=== PATIENT | male | born 1950 | race Caucasian/White ===

== ENCOUNTER → 2021-11-08 | Outpatient (CLI) | payer MEDICARE, BC ==
[~2021-11-08] MED LIST: ALEVE 220MG220 MG PO; AMOXICILLIN 25250 MG PO; ASPIRIN 81M81 MG/TA2 PO; ASPIRIN E.C. 8181 MG PO; CIPRO 500MG TA500 MG; CLARITIN 1010 MG/TAB PO; COZAAR 50MG50 MG/TAB PO; CRESTOR 10MG10 MG PO; EC NAPROSYN500 MG PO; LOTRIMIN1% TP; MULTIPLE VITAMI1 CAP PO; NAPROSYN500 MG PO; NATURAL E400 IU PO; NITROSTAT0.4 MG/TAB SL; PERCOCET 325 MG1 TA2 PO; PRILOSEC 20MG20 MG PO; PROBIOTIC FORMU1 CAP PO; RELAFEN 50500 MG/TAB PO; SENOKOT S 50 MG1 TAB PO; VIAGRA100 MG PO; ZANTAC 150MG T150 MG PO; ZOCOR 20MG20 MG PO; ZYRTEC 10MG10 MG PO; [UNRECOGNIZED DRUG - OTHER] TP
== END ==
LOC: COL.RAD 13:00
DX: R31.29 Other microscopic hematuria (principal)

== ENCOUNTER 2023-04-28 13:56 | Emergency (ER) | payer MEDICARE, BC ==
[~2023-04-28] VITALS: Ht 190.5 cm; Wt 115.0 kg
[~2023-04-28 13:56] MED LIST changes: +INDERAL 10MG10 MG PO; +METROCREAM CREA45 GM TP; +MOBIC15 MG PO; +MULTI VITAMINS1 TAB PO; +PEPCID 20MG TAB20 MG PO; +PRIL40 PO; +PRINIVIL20 MG PO; +PROBIOTIC DIGE1 EACH PO; +VITAMIN E 400 U4001 PO
[2023-04-28 14:13] VITALS: TEMP 98.5
[2023-04-28 15:59] LABS: BASO % 0.3 % (0.0-2.0); EOS % 0.3 % (0.0-4.0); GRAN # 3.8 K/mm3 (1.4-6.5); GRAN % 60.7 % (42.2-75.2); HEMATOCRIT 41.3 % (42.0-52.0); HEMOGLOBIN 14.2 g/dl (13.5-18.0); LYMPH # 1.4 K/mm3 (1.2-3.4); MEAN CELL VOLUME 91 fl (80.0-100.0); MEAN CORPUSCULAR HEMOGLOBIN 31 pg (27-31); MEAN CORPUSCULAR HGB CONC 34 g/dl (33.0-37.0); MEAN PLATELET VOLUME 9.8 fl (7.4-10.4); MONO % 15.4 % (1.7-9.3); PLATELET COUNT 159 K/mm3 (130-400); RED BLOOD COUNT 4.55 M/mm3 (4.20-5.60); REDCELL DISTRIBUTION WIDTH-CV 13.1 % (11.5-14.5)
[2023-04-28 16:05] LABS: ANION GAP 12 mmol/L (7-16); BLOOD UREA NITROGEN 17 mg/dL (8-26); CALCIUM 9.1 mg/dL (8.4-10.2); CARBON DIOXIDE 25 mmol/L (23-31); CHLORIDE 100 mmol/L (98-107); CREATININE, serum 0.99 mg/dL (0.72-1.25); GLUCOSE 84 mg/dL (70-99); POTASSIUM 4.4 mmol/L (3.5-4.5); SODIUM 137 mmol/L (136-145)
[2023-04-28 16:26] LABS: THYROID STIMULATING HORMONE 0.184 uIU/mL (0.350-4.940)
[2023-04-28 16:35] LABS: TROPONIN-I < 0.010 ng/mL (0.00-0.033)
[2023-04-28 17:49] VITALS: BP 132/72; PULSE 70
== END 2023-04-28 17:50 | disposition home or self-care (01) ==
LOC: COL.ER 13:56
PROVIDERS: Internal Medicine
DX: J10.1 Influenza due to other identified influenza virus with other respiratory manifestations (principal); I48.91 Unspecified atrial fibrillation; E05.90 Thyrotoxicosis, unspecified without thyrotoxic crisis or storm

== ENCOUNTER 2023-10-20 07:32 | Day surgery (SDC) | payer MEDICARE, BC ==
[~2023-10-20] VITALS: Ht 190.7 cm; Wt 115.1 kg
[2023-10-20] MEDS ORDERED: COREG 6.256.25 MG/TA PO (08:19)
[2023-10-20] MEDS ORDERED: CEPHALEXIN500 M1 PO ×2 (08:22→09:20)
[2023-10-20] MEDS ORDERED: LOTRISONE CREAM15 GM TP (08:24)
[2023-10-20] MEDS ORDERED: DOXYCYCLINE HY100 MG PO (08:24)
[2023-10-20 08:34] VITALS: BP 133/82; PULSE 53; TEMP 97.5
--- NOTE | 2023-10-20 09:36 | NUR ---
PATIENT TOLERATED PROCEDURE WELL. DRESSING APPLIED AND INSTRUCTIONS REVIEWED. SPOUSE BROUGHT TO BEDSIDE, INSTRUCTED TO VERIFY EMAIL WHEN AVAILABLE FROM [facility]. QUESTIONS INVITED. TRANSFER OF CARE REPORT TO [facility]JORQUE[facility]. DRESSING REMAINS CDI.
--- NOTE | 2023-10-20 10:00 | NUR ---
DC instructions reviewed with pt, he expresses understanding. Dressing over loop insert site remains clean, dry and intact. Pt free of complaints. Denies desire for food or drink prior to DC. He is escorted out of dept with steady gait with belongings.
== END 2023-10-20 10:00 | disposition home or self-care (01) ==
LOC: COL.CAR 07:32
DX: I48.0 Paroxysmal atrial fibrillation (principal); I10 Essential (primary) hypertension; E78.2 Mixed hyperlipidemia; Z79.899 Other long term (current) drug therapy; Z79.01 Long term (current) use of anticoagulants
CPT/HCPCS: C1764